=== PATIENT | female | born 1980 | race Caucasian/White ===

== ENCOUNTER → 2018-01-24 | Outpatient (CLI) | payer BC ==
--- NOTE | 2018-01-24 09:17 | MM ---
Reason for exam: screening (asymptomatic). Baseline mammogram. History: Family history of breast cancer in paternal aunt at age 40. Taking hormonal contraceptives beginning at age 16. Physical Findings: Nurse did not find any significant physical abnormalities on exam. MG Screening Mammo w CAD Bilateral CC and MLO view(s) were taken. The breast tissue is heterogeneously dense. This may lower the sensitivity of mammography. No suspicious abnormality. These results were verbally communicated with the patient and result sheet given to the patient on 01/24/18. ASSESSMENT: Negative, BI-RAD 1 RECOMMENDATION: Routine screening mammogram of both breasts in 1 year.
== END ==
LOC: RADMAMWWP 07:40
PROVIDERS: ATTEND Obstetrics & Gynecology
DX: Z80.3 Family history of malignant neoplasm of breast (principal)
CPT/HCPCS: 77067

== ENCOUNTER 2019-10-02 09:12 | Day surgery (SDC) | payer BC ==
[2019-09-30 10:46] VITALS: BMI 28.4
[~2019-10-02 09:12] MED LIST: LACTATED RINGERS 1,000 ML IV SCH; LIDOCAINE 1% (10MG/ML) FOR IV START INTRADERMA PRN
[2019-10-02 09:36] VITALS: TEMP 97.5
[2019-10-02] MEDS ORDERED: LIDOCAINE 1% INJ 10MG/ML (20 ML MDV) ONE (09:44)
[2019-10-02] MEDS ORDERED: GLYCOPYRROLATE 0.2 MG/ML 2 ML VIAL ONE (09:44)
[2019-10-02] MEDS ORDERED: PROPOFOL 10 MG/ML 20 ML VIAL IV ONE (09:44)
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
--- NOTE | 2019-10-02 09:57 | P.PCN ---
Date of Procedure: 10/02/19 Procedure(s) Performed: Preoperative Dx: GERD Postoperative Dx: Mild gastritis, small to medium sized hiatal hernia Procedure: EGD with Bx Anesthesia: Sedation Endoscopist: Dr. Lee Specimens: Antrum Endoscopic Procedure: The patient was on the endoscopy table in the left decubitus position. The Olympus gastroscope was inserted into the oropharynx and passed under direct visualization to the region of the third portion of the duodenum. From that point the scope was slowly withdrawn inspecting all s urfaces carefully. There were no neoplastic inflammatory or polypoid lesions throughout the duodenum. The pylorus was widely patent. The stomach was carefully inspected. There was mild gastritis. A biopsy of the antrum took place to rule out H. pylori. Retroflexion revealed a small to medium-sized hiatal hernia. The GE junction was present 2-3 cm above the diaphragmatic hiatus. The esophagus was then carefully examined. There were no neoplastic inflammatory or polypoid lesions throughout the visualized esophagus. The patient was then taken to the recovery room in stable condition per anesthesia guidelines. Recommendations: Continue antiacid therapy. We'll discuss repair hiatal hernia further with the patient
[2019-10-02 10:08] VITALS: RESP 18
[2019-10-02 10:25] VITALS: BP 131/90; PULSE 81
== END 2019-10-02 11:20 | disposition home or self-care (01) ==
LOC: ORWHC2ENDO 09:12
PROVIDERS: ATTEND Surgery
DX: K29.50 Unspecified chronic gastritis without bleeding (principal); K44.9 Diaphragmatic hernia without obstruction or gangrene; K21.9 Gastro-esophageal reflux disease without esophagitis; R41.3 Other amnesia; L40.9 Psoriasis, unspecified; F90.9 Attention-deficit hyperactivity disorder, unspecified type; Z87.891 Personal history of nicotine dependence; Z79.899 Other long term (current) drug therapy; Z79.3 Long term (current) use of hormonal contraceptives
CPT/HCPCS: 81025; 88305; 43239; J2001; J2704

== ENCOUNTER → 2019-10-17 | Outpatient (CLI) | payer BC ==
--- NOTE | 2019-10-17 13:09 | FL ---
EXAMINATION: Cervical and Thoracic Esophagram DATE OF EXAM: 10/17/2019 CLINICAL INDICATION: 39-year-old female dysphasia, severe reflux, sensation of food and drink stickin g in esophagus. COMPARISON: None Total Fluoroscopy Time: 1 minute 27 seconds. Total images: 34. FINDINGS: The swallowing mechanism is normal and hypopharyngeal anatomy is preserved. The cervical and thoracic portions have a normal course and caliber and normal motility. The mucosa is normal and no persistent filling defect is encountered. There is a small sliding hiatal hernia. Combined Valsalva and turning maneuvers elicits severe gastroesophageal reflux up to the thoracic inl et. IMPRESSION: 1. Small sliding hiatal hernia. 2. Combination of Valsalva and turning maneuvers elicits severe gastroesophageal reflux up to the tho racic inlet.
== END | disposition home or self-care (01) ==
LOC: RADFLMAIN 10:50
PROVIDERS: ATTEND Surgery
DX: K44.9 Diaphragmatic hernia without obstruction or gangrene (principal); K21.9 Gastro-esophageal reflux disease without esophagitis
CPT/HCPCS: 74220

== ENCOUNTER → 2020-06-17 | Day surgery (SDC) | payer BC, OTHER ==
[2020-06-15 12:16] VITALS: BMI 28.7
[2020-06-17 14:06] VITALS: BP 152/83; PULSE 82; RESP 16; TEMP 98
--- NOTE | 2020-06-18 19:56 | PCN ---
PROCEDURE NOTE DATE OF DICTATION: 06/17/2020. BRIEF HISTORY: The patient is a 40-year-old white female with history of gastroesophageal reflux disease and intermittent dysphagia to solids, scheduled for high-resolution impedance manometry as a part of evaluation of dysphagia. The patient had an upper endoscopy by Dr. Lee in September of this year that showed evidence of a small hiatal hernia but no evidence of esophagitis. She had a barium esophagogram done in October of this year that showed normal motility pattern of the esophagus with evidence of moderate to severe reflux. Because of the dysphagia, she is scheduled for esophageal manometry. PROCEDURE PERFORMED: High-resolution impedance esophageal manometry. PREOPERATIVE DIAGNOSIS: Gastroesophageal reflux disease/dysphagia. PROCEDURE DESCRIPTION: After informed consent was obtained from the patient, she was brought into the endoscopy unit. The procedure was performed by endoscopy nurse Caitie Fox. The esophageal manometry catheter was passed through the external nostril and was gently advanced into the esophagus and advanced further. Study was performed using liquid and viscous swallows. The study was interpreted using Donalds classification. 1. Lower esophageal sphincter data: Mean IRP 94 mmHg. Residual pressure 15 mmHg. 2. Lower esophageal body: Mean DCI 1173 mmHg.S.cm. 3. Peristaltic contractions were 90%. 4. Distal latency 50%. 5. Ineffective contractions 0%. 6. Simultaneous contractions 0%. 7. Retrograde contractions 10%. IMPEDANCE STUDY: Complete liquid transit 10%. Complete viscous transit 40%. IMPRESSION: The lower esophageal sphincter mean integral residual pressure is extremely high at 94 mmHg. However, there was normal peristalsis in majority of the wet swallows. Based on the manometry criteria, there is no evidence of esophageal achalasia. However, the possibility of hypertensive lower esophageal sphincter needs to be considered. 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 MMODL / IJN: [id number] /
== END ==
LOC: ORWHC2ENDO 13:23
PROVIDERS: ATTEND Internal Medicine Gastroenterology
DX: R13.10 Dysphagia, unspecified (principal); K21.9 Gastro-esophageal reflux disease without esophagitis; K44.9 Diaphragmatic hernia without obstruction or gangrene
CPT/HCPCS: 91010

== ENCOUNTER → 2021-04-29 | Outpatient (CLI) | payer OTHER ==
--- NOTE | 2021-04-30 11:06 | MM ---
Reason for exam: screening (asymptomatic). Last mammogram was performed 3 years and 3 months ago. History: Family history of breast cancer in paternal aunt at age 40. Taking hormonal contraceptives beginning at age 16. Physical Findings: A clinical breast exam by your physician is recommended on an annual basis and results should be correlated with mammographic findings. MG Screening Mammo w CAD Bilateral CC and MLO view(s) were taken. Prior study comparison: January 24, 2018, bilateral MG screening mammo w CAD. There are scattered fibroglandular densities. No significant changes when compared with prior studies. ASSESSMENT: Negative, BI-RAD 1 RECOMMENDATION: Routine screening mammogram of both breasts in 1 year.
== END | disposition home or self-care (01) ==
LOC: RADMAMWWP 07:23
PROVIDERS: ATTEND Internal Medicine Geriatric Medicine
DX: Z12.31 Encounter for screening mammogram for malignant neoplasm of breast (principal); Z80.3 Family history of malignant neoplasm of breast
CPT/HCPCS: 77067

== ENCOUNTER → 2022-05-11 | Outpatient (CLI) | payer OTHER ==
--- NOTE | 2022-05-12 18:42 | MM ---
Reason for Exam: Screening (asymptomatic). Last screening mammogram was performed 12 month(s) ago. Patient History: Menarche at age 14. First Full-Term at age 25. Premenopausal. Currently using Hormonal Contraceptives, starting at age 16. Paternal aunt had breast cancer, age 40. Last menstrual period: 05/03/2022 Risk Values: Mariana 5 year model risk: 0.5%. NCI Lifetime model risk: 9.0%. Prior Study Comparison: 01/24/2018 Bilateral Screening Mammogram, [facility]. 04/29/2021 Bilateral Screening Mammogram, [facility]. Tissue Density: There are scattered fibroglandular densities. Findings: Analyzed By CAD. There is a new irregular focal density within the posterior lower outer right breast. Additional workup is recommended. Left breast appears stable. Overall Assessment: Incomplete: need additional imaging evaluation, BI-RAD 0 Management: Diagnostic Mammogram of the right breast. A negative mammogram report should not preclude additional follow up of suspicious palpable abnormalities. Patient should continue monthly self breast exam. A clinical breast exam by your physician is recommended on an annual basis and results should be correlated with mammographic findings. Electronically signed and approved by: Helio Canchola D.O. Radiologis
== END | disposition home or self-care (01) ==
LOC: RADMAMWWP 07:20
PROVIDERS: ATTEND Obstetrics & Gynecology
DX: Z12.31 Encounter for screening mammogram for malignant neoplasm of breast (principal); Z80.3 Family history of malignant neoplasm of breast
CPT/HCPCS: 77067

== ENCOUNTER → 2022-05-17 | Outpatient (CLI) | payer OTHER ==
--- NOTE | 2022-05-17 07:40 | MM ---
Reason for Exam: Additional evaluation requested from abnormal screening. Last screening mammogram was performed less than 1 month ago. Patient History: Menarche at age 14. First Full-Term at age 25. Premenopausal. Currently using Hormonal Contraceptives, starting at age 16. Paternal aunt had breast cancer, age 40. Last menstrual period: 04/28/2022 Risk Values: Mariana 5 year model risk: 0.5%. NCI Lifetime model risk: 9.0%. Prior Study Comparison: 01/24/2018 Bilateral Screening Mammogram, [facility]. 04/29/2021 Bilateral Screening Mammogram, [facility]. 05/11/2022 Bilateral MG screening mammo w CAD, [facility]. Tissue Density: Right: There are scattered fibroglandular densities. Findings: Analyzed By CAD. No distinct new lesion persists on additional views. Overall Assessment: Negative, BI-RAD 1 Management: Screening Mammogram of both breasts in 1 year. Return to routine follow-up. Results were given to the patient verbally at the time of exam. Electronically signed and approved by: Pipe Mosley M.D.
== END | disposition home or self-care (01) ==
LOC: RADMAMWWP 07:03
PROVIDERS: ATTEND Obstetrics & Gynecology
DX: R92.8 Other abnormal and inconclusive findings on diagnostic imaging of breast (principal); Z80.3 Family history of malignant neoplasm of breast
CPT/HCPCS: 77065

== ENCOUNTER → 2023-05-19 | Outpatient (CLI) | payer OTHER ==
--- NOTE | 2023-05-22 07:47 | MM ---
Reason for Exam: Screening (asymptomatic). Last mammogram was performed 1 year(s) and 1 month(s) ago. Patient History: Menarche at age 14. First Full-Term at age 25. Premenopausal. Currently using Hormonal Contraceptives, starting at age 16. Paternal aunt had breast cancer, age 40. Risk Values: Mariana 5 year model risk: 0.6%. NCI Lifetime model risk: 8.9%. Prior Study Comparison: 04/29/2021 Bilateral Screening Mammogram, [facility]. 05/11/2022 Bilateral MG screening mammo w CAD, [facility]. 05/17/2022 Right MG work up mamm w CAD RT, [facility]. Tissue Density: There are scattered fibroglandular densities. Findings: Analyzed By CAD. There is no suspicious group of microcalcifications or new suspicious mass in either breast. Overall Assessment: Negative, BI-RAD 1 Management: Screening Mammogram of both breasts in 1 year. A clinical breast exam by your physician is recommended on an annual basis and results should be correlated with mammographic findings. Note on Mariana scores and lifetime risk: 1. A Mariana score greater than 3% is considered moderate risk. If this is the case, consider specialist referral to assess eligibility for a risk reducing agent. If overall lifetime risk for the development of breast cancer is 20% or higher, the patient may qualify for future screening with alternating mammogram and breast MRI. Electronically signed and approved by: Andres Abad D.O.
== END | disposition home or self-care (01) ==
LOC: RADMAMWWP 07:07
PROVIDERS: ATTEND Obstetrics & Gynecology
DX: Z12.31 Encounter for screening mammogram for malignant neoplasm of breast (principal); Z80.3 Family history of malignant neoplasm of breast
CPT/HCPCS: 77067

== ENCOUNTER → 2024-05-22 | Outpatient (CLI) | payer OTHER ==
--- NOTE | 2024-05-23 20:07 | MM ---
Reason for Exam: Screening (asymptomatic). Last screening mammogram was performed 12 month(s) ago. Patient History: Menarche at age 14. First Full-Term at age 25. Premenopausal. Currently using Hormonal Contraceptives, starting at age 16. Paternal aunt had breast cancer, age 40. Last menstrual period: 05/22/2024 Risk Values: Mariana 5 year model risk: 0.6%. NCI Lifetime model risk: 8.8%. Prior Study Comparison: 05/11/2022 Bilateral MG screening mammo w CAD, [facility]. 05/17/2022 Right MG work up mamm w CAD RT, [facility]. 05/19/2023 Bilateral MG screening mammo w CAD, [facility]. Tissue Density: There are scattered areas of fibroglandular density. Findings: Analyzed By CAD. Unchanged asymmetric density medial right CC view. There is no suspicious group of microcalcifications or new suspicious mass in either breast. Overall Assessment: Benign, BI-RAD 2 Management: Screening Mammogram of both breasts in 1 year. . Patient should continue monthly self-breast exams. A clinical breast exam by your physician is recommended on an annual basis. This exam should not preclude additional follow-up of suspicious palpable abnormalities. Note on Mariana scores and lifetime risk: 1. A Mariana score greater than 3% is considered moderate risk. If this is the case, consider specialist referral to assess eligibility for a risk reducing agent. 2. If overall lifetime risk for the development of breast cancer is 20% or higher, the patient may qualify for future screening with alternating mammogram and breast MRI. [facility], , 05/23/2024 8:04 PM. Electronically signed and approved by: Fidel Manrique M.D. Radiologist
== END | disposition home or self-care (01) ==
LOC: RADMAMWWP 10:38
PROVIDERS: ATTEND Obstetrics & Gynecology Obstetrics
DX: Z12.31 Encounter for screening mammogram for malignant neoplasm of breast
CPT/HCPCS: 77067

== ENCOUNTER → 2024-06-28 | Outpatient (CLI) | payer OTHER ==
--- NOTE | 2024-06-30 11:45 | CT ---
EXAMINATION TYPE: CT abdomen pelvis w con DATE OF EXAM: 06/28/2024 5:03 PM COMPARISON: None. CLINICAL INDICATION: Female, 44 years old with history of R10.9 UNSPECIFIED ABDOMINAL PAIN, abdominal pain and bloating TECHNIQUE: Axial images were obtained from above the diaphragm to the pubic rami in the axial plane a t 5 mm thick sections. Reconstructed images are reviewed on the computer in the coronal plane. CONTRAST: 100 mL of Isovue 370. Study performed with Oral Contrast DLP: 1445 mGycm, Automated exposure control for dose reduction was used. FINDINGS: Limited CT sections are obtained the lung bases. The lung bases are clear. CT ABDOMEN: Liver: Normal Spleen: Normal Pancreas: Normal Adrenal glands: The adrenal glands are normal. Gallbladder: Normal Kidneys: No masses are evident. No hydronephrosis is present. No cysts are present. Delayed images were obtained through the kidneys, which remain unremarkable. Aorta: Normal Inferior vena cava: Normal. CT PELVIS: Loops of bowel within the abdomen and pelvis are normal. There are loops of bowel which are incom pletely distended or lack oral contrast limiting their evaluation. Appendix: Normal as visualized. Urinary bladder: Normal. Genitourinary structures: Uterus is unremarkable. Adnexa are normal. There is a 1.7 cm cyst left ovar y. There is a 1.5 cm cyst right ovary Osseous structures: No suspicious lytic or sclerotic lesions. IMPRESSION: 1. Bilateral ovarian cysts. [facility], , 06/30/2024 11:43 AM
== END | disposition home or self-care (01) ==
LOC: RADCTMAIN 14:46
PROVIDERS: ATTEND Internal Medicine Geriatric Medicine
DX: N83.201 Unspecified ovarian cyst, right side (principal); N83.202 Unspecified ovarian cyst, left side; R10.9 Unspecified abdominal pain
CPT/HCPCS: 74177; Q9967